=== PATIENT | female | born 1945 | race Caucasian/White ===

== ENCOUNTER → 2017-06-15 | Outpatient (CLI) | payer BC ==
[~2017-06-15] MED LIST: ASPI81TA28 PO; CHOL100010 PO; LISI-725 PO; LOVA10TA3 PO; ZNTT/150 PO
--- NOTE | 2017-06-15 13:56 | MAMMOGRAPHY REPORT ---
BILATERAL DIGITAL SCREENING MAMMOGRAM WITH CAD: 06/15/2017 CLINICAL HISTORY: Routine screening. Patient has no complaints. TECHNIQUE: Current study was also evaluated with a Computer Aided Detection (CAD) system. Bilateral CC and MLO views were obtained. COMPARISON: Comparison is made to exams dated: 06/13/2016 mammogram, 06/08/2015 mammogram, 03/31/2014 ma mmogram, 03/28/2013 mammogram, 03/27/2012 mammogram, and 03/24/2011 mammogram - [facility] BREAST COMPOSITION: There are scattered areas of fibroglandular density in both breasts. FINDINGS: No suspicious masses, calcifications, or areas of architectural distortion are noted in ei ther breast. There has been no significant interval change compared to prior exams. Small circumscri bed benign appearing mass in the right central anterior breast is stable and was shown to represent a benign cyst on a prior ultrasound exam. Benign intramammary lymph node in the left upper outer quad rant is stable. IMPRESSION: ACR BI-RADS CATEGORY 2: BENIGN There is no mammographic evidence of malignancy. A 1 year screening mammogram is recommended. The pa tient will receive written notification of the results. Approximately 10% of breast cancers are not detected with mammography. A negative mammographic report should not delay biopsy if a clinically suggestive mass is present. Lisa Diggs M.D. /:06/15/2017 07:33:26 Software Validation Engineer: Nayla DAMON)([place]), [facility] letter sent: Normal 1/2 BI-RADS Code: ACR BI-RADS Category 2: Benign
== END | disposition home or self-care (01) ==
LOC: C.MAMM 07:17
PROVIDERS: ATTEND Nurse Practitioner Family
DX: Z12.31 Encounter for screening mammogram for malignant neoplasm of breast (principal)

== ENCOUNTER → 2017-07-11 | Outpatient (CLI) | payer BC ==
--- NOTE | 2017-07-11 13:33 | DIAGNOSTIC IMAGING REPORT ---
CHEST 2 VIEWS ROUTINE CLINICAL HISTORY: COUGH COMPARISON STUDY: 01/12/2015 FINDINGS: The cardiac and mediastinal contours are normal. There is no evidence of focal pulmonary consolidation. There is no evidence of failure. No pleural effusions are visualized.[ There is a small linear focus of scar/atelectatic change at the right lung base. An 8 mm density at the left lung base, remains unchanged the prior study and likely relates to an area of rib sclerosis. IMPRESSION: No active disease in the chest. Electronically signed by: Owen Alvarez M.D. 07/11/2017 1:32 PM Dictated Date/Time: 07/11/2017 1:31 PM
== END | disposition home or self-care (01) ==
LOC: C.RAD 13:06
PROVIDERS: ATTEND Nurse Practitioner Family
DX: R05 Cough (principal)

== ENCOUNTER → 2018-02-02 | Outpatient (CLI) | payer BC ==
[~2018-02-02] MED LIST changes: +RANI150T85 PO; -ZNTT/150 PO
--- NOTE | 2018-02-02 12:27 | DIAGNOSTIC IMAGING REPORT ---
LEFT LOWER EXTREMITY VENOUS DOPPLER CLINICAL HISTORY: Left leg pain. COMPARISON STUDY: No previous studies for comparison. TECHNIQUE: Sonography of the deep venous system of the left lower extremity was performed. Compression and augmentation were evaluated. FINDINGS: The left common femoral, superficial femoral and popliteal veins were compressible. Augmentation was normal. Flow was shown within the deep calf vessels. IMPRESSION: No evidence of deep venous thrombus within the left lower extremity. Electronically signed by: Brendan Dolan M.D. 02/02/2018 12:25 PM Dictated Date/Time: 02/02/2018 12:25 PM
== END | disposition home or self-care (01) ==
LOC: C.ULTRBC 11:41
PROVIDERS: ATTEND Orthopaedic Surgery
DX: M79.605 Pain in left leg (principal); R60.0 Localized edema

== ENCOUNTER 2025-01-31 06:22 | Observation (INO) ==
--- NOTE | 2024-12-24 11:15 | PAT Medication Instructions ---
Medication Instructions Date of Service December 24, 2024 Home Medications Medication Instructions Recorded montelukast 10 mg tablet 10 mg PO QPM #90 tabs 02/02/24 (Singulair) meloxicam 15 mg tablet 15 mg PO DAILY PRN Sciatic Pain 02/16/24 #90 tabs budesonide-formoterol HFA 80 2 puff inhalation BID #3 Inhalers 03/14/24 mcg-4.5 mcg/actuation aerosol inhaler (Symbicort) alendronate 70 mg tablet 70 mg PO Q7D 52 weeks #12 tabs 07/15/24 methimazole 5 mg tablet 5 mg PO DAILY #90 tabs 09/02/24 fluticasone propionate 50 mcg/actuation nasal spray,suspension (Flonase Allergy Relief) 2 sprays intranasal DAILY PRN loratadine 10 mg tablet (Allergy Relief (loratadine)) 10 mg PO QAM montelukast 10 mg tablet (Singulair) 10 mg PO QPM meloxicam 15 mg tablet 15 mg PO DAILY PRN cholecalciferol (vitamin D3) 25 mcg (1,000 unit) capsule 2,000 unit PO QAM budesonide-formoterol HFA 80 mcg-4.5 mcg/actuation aerosol inhaler (Symbicort) 2 puff inhalation BID alendronate 70 mg tablet 70 mg PO Q7D methimazole 5 mg tablet 5 mg PO DAILY losartan 50 mg tablet 50 mg PO QAM lovastatin 10 mg tablet 10 mg PO PM Continue as directed fluticasone propionate 50 mcg/actuation nasal spray,suspension (Flonase Allergy Relief) 2 sprays intranasal DAILY PRN(if needed) methimazole 5 mg tablet 5 mg PO DAILY ASK your surgeon for instructions meloxicam 15 mg tablet 15 mg PO DAILY PRN DO NOT take the morning of surgery loratadine 10 mg tablet (Allergy Relief (loratadine)) 10 mg PO QAM cholecalciferol (vitamin D3) 25 mcg (1,000 unit) capsule 2,000 unit PO QAM alendronate 70 mg tablet 70 mg PO Q7D losartan 50 mg tablet 50 mg PO QAM Take morning of surgery With a small sip of water, OTHERWISE NOTHING TO EAT OR DRINK AFTER MIDNIGHT: budesonide-formoterol HFA 80 mcg-4.5 mcg/actuation aerosol inhaler (Symbicort) 2 puff inhalation BID Take evening before surgery montelukast 10 mg tablet (Singulair) 10 mg PO QPM budesonide-formoterol HFA 80 mcg-4.5 mcg/actuation aerosol inhaler (Symbicort) 2 puff inhalation BID lovastatin 10 mg tablet 10 mg PO PM Other Notes If you have any questions please call us at [phone] or [phone] or [phone] or [phone]
--- NOTE | 2025-01-02 10:32 | Anesthesiology Consultation ---
Date of Service January 02, 2025 Assessment & Plan (1) Encounter for pre-operative examination: - Outpatient joint assessment: Patient is currently scheduled for inpatient pathway. If re-evaluated and patient/surgeon requests outpatient pathway, patient is not recommended candidate for outpatient joint program. Chart Review Chart Review: Acceptable Risk for Surgery and Patient seen in Pre Admission Testing Teaching & Discussion Pre-Anesthesia Teaching/Discussion Notes: Instructed NPO after midnight before surgery, except medications with 15 cc of water. Medication instructions provided according to the PAT guidelines. History Surgery Operation Date: 01/31/25 08:00 Proposed Procedures p Left Total Knee Arthroplasty - Bo Tolbert, Height/Weight Height: 4 ft 11.5 in Weight: 59.5 kg Allergies Allergy/AdvReac Type Severity Reaction Status Date / Time adhesive Allergy Unknown ITCHING/LOCAL Verified 01/02/25 10:54 REDNESS Penicillins Allergy Unknown HIVES Verified 12/20/24 12:23 tetanus toxoid, adsorbed Allergy Unknown LOCAL Verified 12/20/24 12:23 REDNESS AND SWELLING naproxen AdvReac Unknown GI UPSET Verified 12/20/24 12:23 Sulfa (Sulfonamide AdvReac Unknown GI UPSET Verified 12/20/24 12:23 Antibiotics) Medications Home Medications Medication Instructions Recorded Confirmed Last Taken fluticasone propionate 50 2 sprays intranasal DAILY PRN 06/14/19 12/20/24 Unknown mcg/actuation nasal Congestion spray,suspension (Flonase Allergy Relief) loratadine 10 mg tablet (Allergy 10 mg PO QAM 08/08/23 12/20/24 Unknown Relief (loratadine)) montelukast 10 mg tablet 10 mg PO QPM #90 tabs 02/02/24 12/20/24 Unknown (Singulair) meloxicam 15 mg tablet 15 mg PO DAILY PRN Sciatic Pain 02/16/24 12/20/24 Unknown #90 tabs cholecalciferol (vitamin D3) 25 2,000 unit PO QAM 02/21/24 12/20/24 Unknown mcg (1,000 unit) capsule budesonide-formoterol HFA 80 2 puff inhalation BID #3 Inhalers 03/14/24 12/20/24 Unknown mcg-4.5 mcg/actuation aerosol inhaler (Symbicort) alendronate 70 mg tablet 70 mg PO Q7D 52 weeks #12 tabs 07/15/24 12/20/24 Unknown methimazole 5 mg tablet 5 mg PO DAILY #90 tabs 09/02/24 12/20/24 Unknown losartan 50 mg tablet 50 mg PO QAM 12/20/24 12/20/24 Unknown lovastatin 10 mg tablet 10 mg PO PM 12/20/24 12/20/24 Unknown Past Medical History Medical History (Updated 01/02/25 @ 11:17 by Jacqueline Melgoza PA-C) Allergic rhinitis Anesthesia complication awareness during second cataract Basal cell carcinoma removed Chronic venous stasis Difficult intravenous access Graves' disease History of fracture lumbar fractures--denies surgical intervention-most recent several years ago HLD (hyperlipidemia) HTN (hypertension) controlled, stable per pt Hx of bronchitis usually gets when goes to [place] each year, did not go this past year (2023- 2024) Hyperthyroidism Multiple thyroid nodules Osteoporosis Patient denies h/o stroke, seizures, heart attack, heart failure, DM, blood deyanira ts/DVTs or blood transfusions. Exercise / Class Metabolic Activity II 4-5 Yardwork/Stairs/Walk up hill (denies chest discomfort or shortness of breath with one flight of stairs) Past Family History Family History Mother Dementia Family/Other Diabetes Past Surgical History Surgical History H/O colonoscopy History of arthroscopy right knee History of breast biopsy benign History of cataract surgery bilat History of dilatation and curettage History of hysterectomy History of tonsillectomy History of tooth extraction Past Anesthesia History No Hx of Anesthesia Complications and Other (slow to wake with hysterectomy) History of PONV No Hx of PONV and No Hx of Motion Sickness Social History Smoking Status: Never smoker Do You Dip or Chew Tobacco: No Hx Alcohol Use: Yes Alcohol type: beer alcohol intake frequency: 0-2 drinks per day Hx Substance Use: No substance use type: does not use Review of Systems Patient denies chest pain, shortness of breath, dyspnea on exertion, snoring, witnessed apneas, reflux, fever, chills, cough, wheezing, or palpitations. Physical Exam Vital Signs Vitals BP 166/85 P 69 TEMP 97.6 SP02 98% on RA RESP 18 Physical Patient resting comfortably in chair in no acute distress, alert and oriented, responding appropriately throughout visit Full cervical extension range of motion without pain TMD 3.5 finger breadths Mallampati Score 3 Dentition: implant right upper and chipped tooth; denies loose teeth, caps/crowns, or bridges Lungs: normal respiratory effort. Good air movement, clear throughout to auscultation, no adventitious breath sounds Cardiac: regular rate and rhythm, no murmurs noted Carotid arteries: negative bruit bilat Lab Results Anesthesia Preop Results Results Anesthesia Widget: 2 WBC 7.02 K/ul (4.8-10.8) 01/02/25 Hgb 12.8 g/dl (12.0-16.0) 01/02/25 Hct 39.2 % (37.0-47.0) 01/02/25 Plt 285 K/uL (130-400) 01/02/25 Na 142 mmol/L (136-145) 01/02/25 K 4.7 mmol/L (3.5-5.1) 01/02/25 Cl 108 mmol/L (98-107) H 01/02/25 CO2 31 mmol/L (21-32) 01/02/25 BUN 16 mg/dl (6-23) 01/02/25 Creat 0.58 mg/dl (0.6-1.2) L 01/02/25 Glucose Level 100 mg/dl (70-99(Fasting)) H 01/02/25 PT 10.7 Seconds (9.0-12.0) 01/02/25 PTT 25 Seconds (21-31) 01/02/25 INR 1.0 (0.9-1.1) 01/02/25 Blood Type A Positive 01/02/25 Antibody Screen NEGATIVE 01/02/25 Testing Electrocardiogram Date: 01/02/25 NSR, rate 71 bpm Chest X-Ray Date: 04/04/24 No acute process.
--- NOTE | 2025-01-30 13:56 | History & Physical Report ---
Date of Service January 30, 2025 Assessment & Plan (1) Osteoarthritis of left knee: Will proceed with a left total knee arthroplasty. Postoperatively she was started on aspirin for DVT prophylaxis and kept overnight in the hospital for postop medical management. She plans to use energy physical therapy upon di scharge. History of Present Illness Chief Complaint: Osteoarthritis of the left knee. Primary Care Provider: Oswaldo Montana DO Abdi is apleasant 79-year-old female who has been dealing with chronic increasing left knee pain. MRI of the left knee shows tricompartmental arthritis with a little bit of avascular necrosis and edema within the distal lateral femoral condyle. She has been receiving injections. After failed conservative treatment, she has elected to proceed with a left total knee arthroplasty. Allergies Allergy/AdvReac Type Severity Reaction Status Date / Time adhesive Allergy Unknown ITCHING/LOCAL Verified 01/07/25 14:31 REDNESS Penicillins Allergy Unknown HIVES Verified 01/07/25 14:31 tetanus toxoid, adsorbed Allergy Unknown LOCAL Verified 01/07/25 14:31 REDNESS AND SWELLING naproxen AdvReac Unknown GI UPSET Verified 01/07/25 14:31 Sulfa (Sulfonamide AdvReac Unknown GI UPSET Verified 01/07/25 14:31 Antibiotics) Home Medications Medication Instructions Recorded Confirmed Type fluticasone propionate 50 2 sprays intranasal DAILY PRN 06/14/19 01/07/25 History mcg/actuation nasal Congestion spray,suspension (Flonase Allergy Relief) loratadine 10 mg tablet (Allergy 10 mg PO QAM 08/08/23 01/07/25 History Relief (loratadine)) meloxicam 15 mg tablet 15 mg PO DAILY PRN Sciatic Pain 02/16/24 01/07/25 Rx #90 tabs cholecalciferol (vitamin D3) 25 2,000 unit PO QAM 02/21/24 01/07/25 History mcg (1,000 unit) capsule budesonide-formoterol HFA 80 2 puff inhalation BID #3 Inhalers 03/14/24 01/07/25 Rx mcg-4.5 mcg/actuation aerosol inhaler (Symbicort) alendronate 70 mg tablet 70 mg PO Q7D 52 weeks #12 tabs 07/15/24 01/07/25 Rx losartan 50 mg tablet 50 mg PO QAM 12/20/24 01/07/25 History lovastatin 10 mg tablet 10 mg PO PM 12/20/24 01/07/25 History montelukast 10 mg tablet 10 mg PO QPM #90 tabs 01/30/25 Rx (Singulair) Past Med/Surg History Problem List Encounter for pre-operative examination Osteoarthritis of left knee Hyperthyroidism Chronic venous stasis HLD (hyperlipidemia) Osteoporosis Lumbar radicular pain HTN (hypertension) Graves disease Medical History Difficult intravenous access Anesthesia complication awareness during second cataract History of fracture lumbar fractures--denies surgical intervention-most recent several years ago Chronic venous stasis Osteoporosis Hyperthyroidism Graves' disease HLD (hyperlipidemia) HTN (hypertension) controlled, stable per pt Hx of bronchitis usually gets when goes to [place] each year, did not go this past year (2023- 2024) Multiple thyroid nodules Basal cell carcinoma removed Allergic rhinitis Surgical History History of breast biopsy benign History of dilatation and curettage History of hysterectomy History of cataract surgery bilat History of tooth extraction History of tonsillectomy History of arthroscopy right knee H/O colonoscopy Family History Mother Dementia Family/Other Diabetes Social History Smoking Status: Never smoker Second Hand Exposure: No; Do You Dip or Chew Tobacco: No; Tobacco Cessation Education Requested by Patient: No Hx Alcohol Use: Yes Alcohol type: beer Alcohol Intake Frequency: 4 or More x per/Week Hx Substance Use: No Preferred Language: Polish Communication Ability: Effective Desk Officer Required: No Beliefs That Will Affect Care: None marital status: Current Living Situation: Alone current occupational status: retired Other Information That Helps Us Care for You: No Feels Safe at Home: Yes Safety Concerns: Feels Safe At This Time Diet: regular caffeine: Yes Dental Care, Regularly: No Physical Activity Frequency: 3-4 Times per Week Seatbelt Use: always Sunscreen Use: Yes Assistive Devices: Glasses Assistive Devices Comment: dental implant top Review of Systems All systems reviewed & are unremarkable except as noted in HPI & below. Physical Exam Physical exam of the left knee, she has tenderness palpation over the distal medial femoral condyle and over the medial joint line. She has no effusion.. Constitutional WD/WN, vitals as above Eyes PERRL, conjunctivae normal, anicteric sclerae ENMT external ear and nose normal, oropharynx normal Neck trachea midline, no thyromegaly Respiratory normal respiratory effort Cardiovascular RRR, no murmur, no edema Gastrointestinal (Abdomen) normal bowel sounds, soft, nontender, no hepatosplenomegaly Psychiatric A+Ox3, euthymic affect Results & Data Results & Data Laboratory Results . Diagnostic Findings MRI of the left knee shows track advanced tricompartment arthritis with a little bit of avascular necrosis of the distal medial femoral condyle.. PG Care Time/CCT Total # of Minutes Spent Total Time Spent with Patient: Total time spent is greater than 50% in coordination of care (as documented) at patient's floor/unit and/or counseling patient: Coding Level of Care Code None Diagnoses Osteoarthritis of left knee M17.12
[2025-01-31] MEDS ORDERED: DEXAMETHASONE SOD INJ 4 MG/ML VIAL ONE (06:30)
[2025-01-31] MEDS ORDERED: BUPIVACAINE 0.25% PF 30 ML VIAL ONE (06:30)
[2025-01-31] MEDS ORDERED: BUPIVACAINE 0.5 % 5 MG/1 ML PF 10ML VIAL ONE (06:30)
[2025-01-31] MEDS ORDERED: EPINEPHrine INJ 1 MG/ML AMP ONE (06:30)
--- NOTE | 2025-01-31 06:32 | History & Physical Bridge Note ---
Date of Service January 31, 2025 History & Physical Bridge Note I have examined the patient, reviewed the History & Physical and in the interval since the performance of the History & Physical I have noted the following changes of clinical significance: no changes noted
[2025-01-31] MEDS: ACETAMINOPHEN 500 MG TAB PO SCH ×2 (06:53→14:05)
[2025-01-31] MEDS: LR 500ML BOLUS, THEN 15ML/HR IV SCH (06:54)
[2025-01-31] MEDS: GABAPENTIN 300 MG CAP PO SCH (06:54)
[2025-01-31] MEDS: LR 60ML/HR IV SCH (06:54)
[2025-01-31] MEDS: FAMOTIDINE 20 MG TAB PO SCH (06:54)
[2025-01-31] MEDS ORDERED: ePHEDrine sulfate 50 MG/ML AMP ONE (06:56)
[2025-01-31] MEDS ORDERED: SODIUM CHLORIDE 0.9% PF INJ 10 ML VIAL ONE (06:56)
[2025-01-31] MEDS ORDERED: PHENYLEPHRINE 100MCG/ML 5ML SYR ONE (06:56)
[2025-01-31] MEDS ORDERED: PROPOFOL IV EMULSION 10 MG/ML 20 ML VIAL IV ONE (06:57)
[2025-01-31] MEDS ORDERED: GLYCOPYRROLATE 0.2 MG/ML VIAL ONE (06:57)
[2025-01-31] MEDS ORDERED: ONDANSETRON INJ 2 MG/ML 2 ML VIAL ONE (06:57)
[2025-01-31] MEDS ORDERED: LIDOCAINE 2% 2 ML VIAL/AMP(20MG/ML) INFIL ONE (06:57)
[2025-01-31] MEDS ORDERED: MIDAZOLAM HCL 1 MG/ML 2ML VIAL ONE (06:58)
[2025-01-31] MEDS ORDERED: KETAMINE HCL 10MG/ML SYR ONE (06:58)
[2025-01-31] MEDS: dexAMETHasone**PF** 10 MG/ML VIAL IV SCH (06:59)
[2025-01-31] MEDS ORDERED: ATROPINE SULFATE 0.1 MG/ML 10ML SYR IV PRN (07:16)
[2025-01-31] MEDS ORDERED: ONDANSETRON INJ 2 MG/ML 2 ML VIAL IV PRN ×2 (07:16→11:12)
[2025-01-31] MEDS ORDERED: fentaNYL citrate PF 100 MCG/2 ML VIAL IV PRN (07:16)
[2025-01-31] MEDS ORDERED: ePHEDrine sulfate 50 MG/ML AMP IV PRN (07:16)
[2025-01-31] MEDS ORDERED: PROMETHAZINE HCL 6.25 MG in SODIUM CHLORIDE 0.9% 50 ML IV PRN (07:16)
[2025-01-31] MEDS: TRANEXAMIC ACID 1,000 MG **IV Pre-op IV SCH (07:49)
[2025-01-31] MEDS: ceFAZolin 2000MG 2,000 MG/15 ML SYR IV SCH (08:00)
[2025-01-31] MEDS: ORTHO JOINT ANESTHETIC ONE (08:37)
[2025-01-31] MEDS: ROPIV 0.5% 246mg, Ketorolac 30mg, EPINEPHrine 0.5mg in NSS INFIL SCH (08:58)
[2025-01-31] MEDS: TRANEXAMIC ACID 1,000 MG **IV Intra-op IV SCH (09:00)
--- NOTE | 2025-01-31 09:08 | Operative Report ---
PG Post Operative Report Pre & Post Diagnosis Operation Date: 01/31/25 08:00 Pre-Op Diagnosis: Osteoarthritis of left knee Post-Op Diagnosis: Osteoarthritis of left knee I identified the patient and participated in the time-out.: Yes Procedure Operation Date: 01/31/25 08:00 Actual Procedures p Left Total Knee Arthroplasty(Left) - Bo Tolbert DO Surgeon Bo Tolbert DO Computer Application Developer Domingo Jimenes PA-C Estimated Blood Loss 50 Findings Consistent with Post-Op Diagnosis Specimens Left femoral and tibial bone Description of Procedure Implants used: I used a Dev Persona total knee arthroplasty system with a size 6 narrow femur, C tibia, 28 oval patella, and a size 13 medial congruent polyethylene bearing. All components were cemented in place with Biomet cement. Trin[place] arrived [facility] for the above procedure. She was seen in the preoperative holding area and the operative extremity was identified and signed. She was given a preoperative antibiotic, TXA, a spinal anesthetic and an adductor nerve block. She was taken back to the operating room and laid on the table in supine position. She was given basic sedation. The operative knee was then prepped and draped in sterile fashion. A timeout was done, and the patient and the operative extremity was properly identified. A midline incision was made directly over the patella. Dissection was taken down to the extensor mechanism. A medial parapatellar arthrotomy was used. The medial retinaculum was released and the fat pad was mostly excised. The knee was flexed and the ACL, PCL, and meniscus were removed. A drill was sent down the center of the femoral canal followed by an intramedullary jovanni. Off that jovanni a distal femoral cutting block was placed. 9 mm was resected off the distal femur at 5 of valgus. A posterior referencing AP sizing guide was then placed on the distal femur. The femur measured to be a size 6. 2 drill holes were placed in 3 of external rotation. A 4-in-1 cutting block was then impacted into place. Anterior, posterior, and chamfer cuts were then made. The proximal tibia was then exposed. An external tibial alignment guide was placed. A tibial cut guide was then anchored in place and the proximal tibia was then resected. The posterior aspect of the knee was then opened up and any additional meniscus fragments and osteophytes were removed. The tibia measured to be a size C. The tibial plate was then placed in the appropriate rotation and the tibia was drilled and punched. Trial components were then placed. I used a size 13 medial congruent polyethylene insert. The knee was brought through a full range of motion and felt to be stable. The peg holes for the femoral component were then drilled. The patella was then everted and 9 mm was resected off the posterior aspect of the patella. The patella measured to be a size 28 oval. 3 peg holes were then drilled. A trial patella was placed. The knee was once again brought through a full range of motion and felt to be stable. Trial components were then removed. The surrounding soft tissues were injected with 100 cc of an orthopedic pain control cocktail. All components were then cemented into place with Biomet cement. The final polyethylene insert was then snapped into place. Once cement was dry the tourniquet was deflated. Hemostasis was obtained. A dilute betadyne lavage was then done for 3 minutes. The joint was then irrigated with normal saline solution. The medial parapatellar arthrotomy was then closed with #1 Vicryl suture. The skin was closed with 2-0 Vicryl, 3-0V lock suture, and carson. A soft compressive dressing was placed. She was then transferred to a hospital bed and taken to the postanesthesia care unit in stable condition. She tolerated the procedure well. Domingo Jimenes PA-C, was present for the entire procedure. He was critical for patient positioning, prepping, draping, retraction exposure, wound closure and application of sterile dressing. I attest to the content of the Intraoperative Record and any orders documented therein. Any exceptions are noted below.
--- NOTE | 2025-01-31 10:34 | XRay Report ---
XR knee LT 1 or 2V routine CLINICAL HISTORY: Surgical Post Op COMPARISON: None FINDINGS: Left knee prosthesis shows no hardware complication. There is expected soft tissue gas. Sk in carson are present. IMPRESSION: Unremarkable postoperative exam. ACT 112: Negative or not required by law. Electronically signed by: Tony Gil M.D. 01/31/2025 10:33 AM
--- NOTE | 2025-01-31 10:47 | Anesthesiology Progress Note ---
Date of Service January 31, 2025 Anesthesia Post Procedure Vital Signs Vital Signs: Temp Pulse Pulse Resp BP BP Pulse Ox 01/31/25 10:20 66 16 109/55 L 97 01/31/25 10:10 69 16 118/60 92 01/31/25 10:00 36.4 C L 79 15 122/63 94 01/31/25 09:50 70 12 112/55 L 96 01/31/25 09:40 73 13 111/56 L 99 01/31/25 09:29 36.5 C 83 20 105/53 L 98 01/31/25 06:42 36.6 C 85 20 168/83 H 98 O2 Del Method O2 Flow Rate 01/31/25 10:20 Room Air 01/31/25 10:10 Room Air 01/31/25 10:00 Room Air 01/31/25 09:50 Room Air 01/31/25 09:40 Oxymask 2 01/31/25 09:29 Oxymask 6 01/31/25 06:42 Room Air Pain Intensity Left Knee: Pain Intensity: 9 Transfer of Care Handoff Completed per policy Notes Mental Status: alert / awake / arousable Patient Amnestic to Procedure: Yes Nausea / Vomiting: adequately controlled Pain: adequately controlled Airway Patency, RR, SpO2: stable & adequate BP & HR: stable & adequate Hydration State: stable & adequate Neuraxial Anesthesia: was administered and sensory block is resolving Anesthetic Complications: no major complications apparent and Pt Satisfied with anesthetic care
[2025-01-31] MEDS ORDERED: NALOXONE HCL 0.4 MG/1 ML VIAL/CARP IV PRN (11:12)
[2025-01-31] MEDS ORDERED: METOCLOPRAMIDE HCL INJ 5 MG/ML 2 ML VIAL IV PRN (11:12)
[2025-01-31] MEDS ORDERED: oxyCODONE HCL IR 5 MG TAB (IMMEDIATE RELEASE) PO PRN (11:12)
[2025-01-31] MEDS ORDERED: bisacodyL 10 MG SUPP PR PRN (11:12)
[2025-01-31] MEDS ORDERED: MAGNESIUM HYDROXIDE SUSP 30 ML UDC PO PRN (11:12)
[2025-01-31] MEDS ORDERED: HYDROmorphone INJ 0.5 MG/0.5 ML SYR IV PRN (11:12)
[2025-01-31] MEDS: KETOROLAC TROMETHAMINE 15 MG/ML VIAL IV SCH (11:58)
[2025-01-31] MEDS: ceFAZolin 1000MG 1,000 MG/7.5 ML SYR IV SCH (16:06)
[2025-01-31] MEDS: LOVASTATIN 20 MG TAB PO SCH (21:30)
[2025-01-31] MEDS: SENNA 8.6 MG TAB PO SCH (21:30)
[2025-01-31] MEDS: ASPIRIN 81 MG ECTAB PO SCH (21:30)
[2025-01-31] MEDS: DOCUSATE SODIUM 100 MG CAP PO SCH (21:30)
--- NOTE | 2025-02-01 07:15 | Orthopedic Progress Note ---
Date of Service February 01, 2025 Assessment & Plan (1) Status post left knee replacement: Overall she is doing very well. She is not having much pain in the left knee. She will be seen by physical therapy today for ambulation and range of motion exercises. The nursing staff can change her dressing after physical therapy. She can be discharged home later today. She will follow-up with orthopedics in 2 weeks. Jeffrey Abdi was seen and examined at bedside this morning. Overall she is doing fairly well. She is not having much pain in the left knee. She has been up and ambulating to the bathroom. She has no complaints.. Review of Systems All systems reviewed & are unremarkable except as noted in HPI & below. Physical Exam On physical exam of the left knee, the dressing is clean and dry. Her leg is out full extension. She has active dorsiflexion plantarflexion of her left ankle.. Results & Data Results & Data Laboratory Results . Diagnostic Findings Postoperative x-rays of the left knee show the prosthesis to be in anatomic alignment without any evidence of fracture complication, or loosening.. PG Care Time/CCT Total # of Minutes Spent Total Time Spent with Patient: Total time spent is greater than 50% in coordination of care (as documented) at patient's floor/unit and/or counseling patient: Coding Level of Care Code 94549 Post Operative Follow-Up Diagnoses Status post left knee replacement Z96.652
--- NOTE | 2025-02-01 07:15 | Discharge Summary ---
Date of Service February 01, 2025 Admission HPI (Per Admitting) Trinidad is apleasant 79-year-old female who has been dealing with chronic increasing left knee pain. MRI of the left knee shows tricompartmental arthritis with a little bit of avascular necrosis and edema within the distal lateral femoral condyle. She has been receiving injections. After failed conservative treatment, she has elected to proceed with a left total knee arthroplasty. Admission Exam (Per Admitting) Physical exam of the left knee, she has tenderness palpation over the distal medial femoral condyle and over the medial joint line. She has no effusion.. Principal Diagnosis Same as "Discharge Diagnosis" noted below under Discharge Instructions. Discharge Exam On physical exam of the left knee, the dressing is clean and dry. Her leg is out full extension. She has active dorsiflexion plantarflexion of her left ankle.. Discharge Data Procedures Performed Operation Date: 01/31/25 08:00 Actual Procedures p Left Total Knee Arthroplasty(Left) - Bo Tolbert DO Ordered Studies 01/31/25 05:00 US - OR guided needle placemen Routine Hospital Course (1) Status post left knee replacement: On January 31, 2025 Trinidad arrived in [facility] and underwent a left knee replacement without complication. She had a spinal anesthetic. Post operatively, she was started on aspirin for DVT prophylaxis and transferred to the general orthopedic floors. Her hospital course was uneventful. On postop day #1, her vital signs were stable and her pain was well-controlled. She was able to participate well with physical therapy doing ambulation and range of motion exercises. She was then discharged to home. She will follow-up with orthopedics in 2 weeks. PG Care Time/CCT Total # of Minutes Spent Total Time Spent with Patient: Total time spent is greater than 50% in coordination of care (as documented) at patient's floor/unit and/or counseling patient: Discharge Plan Discharge Items Patient Disposition: Home - Self-Care Reason For Visit: Left Knee Arthritis Discharge Diagnosis: Left knee replacement Activity: Per Instructions section Non-emergency contact: Surgeon Call non-emergency contact if: your wound has increased redness and your wound has increased drainage Follow-up/Referrals: Oswaldo Montana DO [Primary Care Provider] - Diet: Regular Addtl Attending Provider Instructions: Activity and Therapy Recommendations: * If you are using [facility] then therapy will be provided at your home until they feel you have accomplished all of your goals. * If you are using [facility] then Physical Therapy will be provided until they feel you are ready to start Outpatient Physical Therapy. * If you are not using home therapy then Outpatient Physical Therapy should start about 3-5 days from your day of surgery. Therapy will last about 6-10 weeks * It is important not to put a pillow under your knee when you are relaxing or sleeping. It is just as important to make sure you are getting your knee perfectly straight as it is to regain your knee bend. * You were shown a series of exercises in the hospital. Do these exercises three times each day including the exercises you were shown in physical therapy. * Get up and walk several times each day. For the first four weeks, try not to stand or walk for more than one hour at a time. If you do stand or walk for more than one hour, you will not hurt anything, but your leg will likely swell. * As you feel comfortable, you may change from the walker or crutches to a cane and then to independent walking. Medications: * Narcotic You will likely be sent home from the hospital with a prescription for the narcotic pain medication that worked best throughout your stay. * Cefadroxil -take the antibiotic twice a day for 10 days to help prevent infection. * Aspirin Most patients will be required to take Aspirin 81mg twice a day for 6 weeks after surgery. This is obtained [id number] and a prescription is not necessary. * Other medications may be prescribed for specific circumstances. If you have any questions, please call the office at . * Resume previous home medications unless otherwise instructed TEDs/Elastic Stockings: The white elastic stockings help limit swelling and prevent blood clots from forming in your legs.~ The more you wear them, the more they work. Wear them for 2 weeks. Dressing Care: The dressing can be changed after physical therapy on postop day #1. Daily dry dressing changes for a few days, especially if the incision is still draining some. If the incision is not draining then you may leave the carson open to air. If there is a little bit of drainage or if the carson are getting stuck on your clothing then cover the incision with a dry dressing. The carson will be removed at your 2 week follow-up appointment. Showering: You may shower 5 days from the day of surgery as long as the incision is no longer draining. You may shower with the carson exposed. Let soapy water run over the carson and pat them dry. Do not scrub or soak the incision. Diet: You may resume your previous diet. Things To Watch For: * Drainage from the incision site that occurs more than one week after your surgery. * Increased redness at the incision site. * Fever above 102 degrees Fahrenheit. * Unusual chest pain or shortness of breath. * Call [facility] at with any of the above problems Follow-Up Visit: Follow-up with Dr. Tolbert's office 2-3 weeks after your day of surgery. We will remove your carson and answer any questions. If you have any additional questions or concerns, Dr Tolbert is usually in the office at the same time and will be available An appointment was probably scheduled when you signed-up for surgery in the office. If you have any questions call Office Instructions: More detailed instructions as well as Frequently Asked Questions were provided in a folder by our office when you signed-up for surgery. Please review these instructions when you get home. If you have any further questions or concerns, please feel free to call the office at [phone] Pending Studies at Discharge: No Stand-Alone Forms: My [facility], Smoking Cessation Medications and DC Order Prescriptions: New cefadroxil 500 mg capsule 500 mg PO BID 10 Days Qty: 20 0RF oxycodone 5 mg tablet 5 mg PO Q6H PRN (Reason: pain) Qty: 30 0RF aspirin 81 mg Tablet,Delayed Release (Dr/Ec) 81 mg PO BID 42 Days Qty: 84 0RF Continued alendronate 70 mg tablet 70 mg PO Q7D 364 Days Qty: 12 3RF Rx Instructions: take 1 tab every 7 days for 52 weeks. montelukast [Singulair] 10 mg tablet 10 mg PO QPM Qty: 90 3RF loratadine [Allergy Relief (loratadine)] 10 mg tablet 10 mg PO QAM fluticasone propionate [Flonase Allergy Relief] 50 mcg/actuation spray,suspension 2 sprays INTNAS DAILY PRN (Reason: Congestion) cholecalciferol (vitamin D3) 25 mcg (1,000 unit) capsule 2,000 unit PO QAM Symbicort 80-4.5 mcg/actuation HFA aerosol inhaler 2 puff INH BID Qty: 3 3RF losartan 50 mg tablet 50 mg PO QAM lovastatin 10 mg tablet 10 mg PO PM Discharge Orders: Discharge Order (Routine); Ordered 02/01/25 Ordered By: Bo Tolbert Admission Data Admit Date/Time: 01/31/25 09:32 Attending Provider: Bo Tolbert Admit Provider: Bo Tolbert Primary Care Provider: Oswaldo Montana
[2025-02-01 07:16] VITALS: BP 113/68; PULSE 64; RESP 17; TEMP 98.2; O2SAT 94
[2025-02-01] MEDS: dexAMETHasone 4 MG TAB PO SCH (09:00)
[2025-02-01] MEDS: LOSARTAN POTASSIUM 50 MG TAB PO SCH (09:28)
[2025-02-01] MEDS: FLUTICASONE/VILANTEROL 100/25MCG 14 PUFFS/INHALER INH SCH (09:28)
[2025-02-01] MEDS: MULTIVITAMIN TAB PO SCH (09:29)
== END 2025-02-01 11:30 | disposition home or self-care (01) ==
LOC: ASU 06:22 → 3W 06:22